=== PATIENT | female | born 1990 | race Caucasian/White ===

== ENCOUNTER 2016-10-31 00:49 | Emergency (ER) | payer OTHER ==
[~2016-10-31] VITALS: Ht 157.5 cm; Wt 56.8 kg
[~2016-10-31 00:49] MED LIST: CEFU500T PO
[2016-10-31 00:50] VITALS: BP 113/79; PULSE 78; RESP 16; O2SAT 99
--- NOTE | 2016-10-31 00:51 | ED.REPORT ---
HPI-Psychiatric Illness Date of Service Oct 31, 2016 ED Provider: Dr. Ga Ortiz M.D. The patient is a 26 year old female with a history of substance abuse who presents to the ED via Police after she was found standing in the road at 2300. When the police spoke with her about this, she denied ever being in the way of oncoming traffic. 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 During their second conversation, the police reserves commander noticed the patient was responding verbally to internal stimuli. The patient currently denies suicidal ideation, homicidal ideation, or other symptoms. She is unsure as to why she was brought to the hospital. The patient has had similar symptoms in the past. Nursing Notes Stated Complaint: MENTAL HEALTH EVAL Chief Complaint: Psychiatric Complaint Nursing Notes Reviewed: Yes Allergies: Coded Allergies: No Known Allergies (Unverified , 10/31/16) Scheduled Cefuroxime Axetil (Ceftin) 500 Mg Tablet 500 MG PO BID General Time Seen by MD: 00:51 Chief Complaint Bizarre behavior Hx Obtained From: Patient Arrived By: Walk-in Onset Occurred: 1 - 4 hours ago Symptom Duration: Since onset Severity: Current: No pain currently Severity: Maximum: No pain Pertinent Negative: Relieved by nothing Related History: Reports: Illicit drug use Immunizations: Tetanus up to date Recent Healthcare: No recent doctor visit Similar Sx Previous: Yes Risk-Psychiatric Illness Suicide Risk Stratification RF Statements: Risk factors reviewed Past Medical History Past Medical History None reported Past Surgical History "TAB x's x2" Smoking History Current Some Day Smoker, Light Tobacco Smoker Social History Reports that she "occasionally" smokes heroin and has previously injected Alcohol Use: "Social" Drug Use: THC, Other Other Social History: Good social support, Local resident Ambulatory Status Independent Review of Systems Unable to Obtain ROS Patient condition, Mental status Physical Exam Initial Vital Signs Vital Signs (First) Date Time Temp Pulse Resp B/P Pulse Ox O2 Delivery O2 Flow Rate FiO2 10/31/16 00:50 36.4 78 16 113/79 99 Room Air Initial VS: Reviewed Head / Eyes: Atraumatic, Normocephalic ENT: Conjunctiva normal, No scleral icterus Neck: Supple, Full range of motion Respiratory: Breath sounds normal, Clear to auscultation, No respiratory distress Cardiovascular: Regular rate & rhythm, Heart sounds normal General/Constitutional: Awake, Alert Neurologic: Oriented X3, Speech NL Psychiatric: Not suicidal, Not homicidal, No hallucinations, Cognitive function NL Skin: Warm, Dry Scattered bruises on arms Interpretation & Diagnostics URINE : Negative URINE DRUG SCREEN: + Methamphetamines + Opiates + Amphetamines Otherwise Negative BREATHALYZER: 0 Lab Results Interpretation Result Diagram: 10/31/16 0218 10/31/16 0218 Test 10/31/16 01:00 10/31/16 02:18 Urine Color Yellow (YELLOW) Urine Appearance Clear (CLEAR,HAZY) Urine pH 5.5 (5.0-8.0) Urine Specific [place] 1.025 (1.003-1.035) Urine Protein 30mg/dL (NEG,TRACE) Urine Glucose (UA) Negativemg/dL (NEGATIVE) Urine Ketones Negativemg/dL (NEGATIVE) Urine Occult Blood Moderate (NEGATIVE) Urine Nitrite Negative (NEGATIVE) Urine Bilirubin Negative (NEGATIVE) Urine Urobilinogen Normalmg/dL (NORMAL) Urine Leukocyte Esterase Negative (NEGATIVE) Urine RBC 3-10/hpf (0-2) Urine WBC 0-5/hpf (0-5) Urine Epithelial Cells Few/hpf (NONE-MOD) Urine Crystals None seen (NONE SEEN) Urine Bacteria Few/hpf (NONE-FEW) Urine Hyaline Casts None/lpf (NONE) Urine Granular Casts None seen (NONE SEEN) Urine Waxy Casts None seen (NONE SEEN) Urine Red Blood Cell Casts None seen (NONE SEEN) Urine White Blood Cell Casts None seen (NONE SEEN) Urine Mucus None seen (None Seen) Urine Trichomonas None seen (NONE SEEN) Urine Yeast None (NONE SEEN) Urinalysis Comment None Urine Culture Reflexed Not indicated White Blood Count 7.1th/mm3 (3.8-10.1) Red Blood Count 4.15mil/mm3 (3.90-5.20) Hemoglobin 12.4g/dL (12.0-15.6) Hematocrit 35.6% (35.0-46.0) Mean Corpuscular Volume 85.8fL (81-100) Mean Corpuscular Hemoglobin 29.9pg (27.0-35.0) Mean Corpuscular Hemoglobin Concent 34.8% (32.0-37.0) Red Cell Distribution Width 13.0% (12.3-15.4) Platelet Count 241bil/L (150-400) Neutrophils (%) (Auto) 60.5% (40-74) Lymphocytes (%) (Auto) 28.7% (14-46) Monocytes (%) (Auto) 9.3% (4-12) Eosinophils (%) (Auto) 1.3% (0-5) Basophils (%) (Auto) 0.1% (0-3) Hold Blue Top Tube Received (Received) Sodium Level 138mEq/L (134-144) Potassium Level 3.7mEq/L (3.5-5.2) Chloride Level 101mEq/L (97-108) Carbon Dioxide Level 24mmol/L (18-29) Blood Urea Nitrogen 19mg/dL (6-20) Creatinine 0.69mg/dL (0.57-1.00) Estimat Glomerular Filtration Rate 147mL/min (>59) Glucose Level 120mg/dL (60-99) Calcium Level 8.8mg/dL (8.5-10.1) Magnesium Level 2.3mg/dL (1.6-2.6) Total Bilirubin 0.2mg/dL (0.0-1.2) Aspartate Amino Transf (AST/SGOT) 50U/L (0-50) Alanine Aminotransferase (ALT/SGPT) 92U/L (0-32) Alkaline Phosphatase 85U/L (25-150) Total Protein 6.7g/dL (6.4-8.4) Albumin 4.0g/dL (3.4-5.0) Hold Red Top Tube Received (Received) Hold [place] Top Tube Received (Received) Hold [place] Top Tube Received (Received) Re-Eval/Medical Decision Med Decision/Clinical Course 26-year-old with a history of methamphetamine abuse presents in police custody after endangering herself in an intoxicated state on the roadway. She denies suicidal or homicidal ideation. She also denies drug use, although her urine tox is positive for methamphetamine. She agrees to sleep tonight and reassess in the morning after her methamphetamine has worn off. She does have a housemate who may be willing to come get her in the morning. Signed out at [address] Sutherland Source of Hx: Old records Re-Evaluation/Progress : Time of Eval: 01:29 Patient Status: Condition improved Re-Evaluation/Progress Note: Patient rechecked. Discussed with patient lab results, diagnosis, and plan for transfer of care to Dr. Sutherland for reevaluation in the morning. She agrees with plan for care and all questions were addressed. Counseled Regarding: Diagnosis, Lab results, Need for follow-up, When/why to return to ED Discharge & Departure Shift Change Sign-Out Patient Care Transferred: Yes (Dr. Sutherland) Discussed Complaint(s): Yes Laboratory Evaluation: Lab evaluation discussed Response to Therapy: Improved Impression: Primary Impression: Methamphetamine use Additional Impression: Psychosis Psychosis type: unspecified psychosis type Qualified Code: F29 - Unspecified psychosis not due to a substance or known physiological condition Referrals: NOPCP (PCP) Care Transferred to: Dr. Sutherland Care Transferred at: 06:10 Scribe Attestation Portions of this note were transcribed by Mishel Mendoza. I, Dr. Ortiz, personally performed the history, physical exam, and medical decision-making; I reviewed and confirmed the accuracy of the information in the transcribed note. Signed by: Radha Salcedo, 10/31/2016, 06:20 Ga Ortiz MD Oct 31, 2016 00:51 MISHEL MENDOZA Oct 31, 2016 00:58
[2016-10-31 01:33] LABS: APPEARANCE,URINE CLEAR (CLEAR,HAZY); COLOR,URINE YELLOW (YELLOW); OCCULT BLOOD,URINE MODERATE (NEGATIVE); PH,URINE 5.5 (5.0-8.0); UROBILINOGEN,URINE NORMAL (NORMAL)
[2016-10-31 02:27] LABS: BASOPHILS % (AUTO) 0.1 % (0-3); EOSINOPHILS % (AUTO) 1.3 % (0-5); MONOCYTES % (AUTO) 9.3 % (4-12); Mean Corpuscular Hemoglobin 29.9 pg (27.0-35.0); Mean Corpuscular Volume 85.8 fL (81-100); NEUTROPHILS % (AUTO) 60.5 % (40-74); Platelet Count 241 bil/L (150-400)
[2016-10-31 02:51] LABS: Magnesium 2.3 mg/dL (1.6-2.6)
[2016-10-31 05:29] VITALS: BP 107/44; PULSE 74; RESP 16; O2SAT 99
[2016-10-31 08:23] VITALS: BP 100/59; PULSE 70; RESP 18; O2SAT 100
== END 2016-10-31 08:25 | disposition home or self-care (01) ==
LOC: SED 00:49
DX: F29 Unspecified psychosis not due to a substance or known physiological condition (principal); F15.10 Other stimulant abuse, uncomplicated; F17.200 Nicotine dependence, unspecified, uncomplicated; Z79.2 Long term (current) use of antibiotics